=== PATIENT | male | born 1955 | race Caucasian/White ===

== ENCOUNTER → 2024-11-22 07:24 | Outpatient (CLI) | payer MEDICARE, BC, SELFPAY ==
[2024-11-22 07:47] LABS: Mean Corpuscular HGB Conc 33.4 % (30-36); Mean Corpuscular Hemoglobin 31.4 PG (26-34); Mean Corpuscular Volume 94.2 fL (80-100); Platelet Count 162 X10^3/uL (150-400); Red Blood Cell Count 5.74 X10^6/uL (4.5-5.9); Red Cell Distribution Width 14.2 % (11.6-14.8); White Blood Cell Count 6.3 X10^3/uL (4.5-11.0)
[2024-11-22 07:53] LABS: Hemoglobin A1C% w Est Avg Glu 5.2 % (4.0-6.0)
[2024-11-22 08:05] LABS: Alanine Aminotransferase 34 IU/L (<50); Albumin 4.5 g/dL (3.5-5.0); Alkaline Phosphatase 71 U/L (38-126); Aspartate Aminotransferase 31 IU/L (17-59); BUN Creatinine Ratio 12.1 (6-22); Bilirubin Total 1.3 mg/dL (0.2-1.3); Blood Urea Nitrogen 17 mg/dL (9-20); Carbon Dioxide 29 mmol/L (22-32); Chloride 103 mmol/L (98-107); Cholesterol 214 mg/dL (140-199); Estimated Glomerular Filt Rate 53 mL/min (>60); Globulin 2.2 g/dL (1.7-4.1); Glucose 97 mg/dL (70-99); HDL Cholesterol 28 mg/dL (40-60); HEMOLYSIS < 15 (0-50); LDL Cholesterol Calculated 134 mg/dL (<100); Potassium 4.2 mmol/L (3.4-5.1); Sodium 140 mmol/L (137-145); Total Protein 6.7 g/dL (6.3-8.2); Triglycerides 261 mg/dL (35-150)
[2024-11-22 08:12] LABS: Creatinine Urine Random 199.85 mg/dL
[2024-11-22 08:20] LABS: Prolactin 1.4 ng/mL (3.7-17.9)
[2024-11-22 08:22] LABS: Free T3, Triiodothyronine Free 4.01 pg/mL (2.77-5.27); Free T4, Direct Thyroxine 1.39 ng/dL (0.78-2.19)
[2024-11-22 08:24] LABS: Microalbumin Urine Random < 0.6 mg/dL (0-1.6)
[2024-11-22 08:35] LABS: Thyroid Stimulating Hormone 1.38 uIU/mL (0.47-4.68)
[2024-11-22 08:53] LABS: Hep C Virus Ab w/Reflex Quant NEGATIVE s/c (NEGATIVE)
== END ==
LOC: LAB 07:25
PROVIDERS: PCP Family Medicine; Referring Provider Family Medicine; Visit Provider Family Medicine
DX: D35.2 Benign neoplasm of pituitary gland (principal); Z13.1 Encounter for screening for diabetes mellitus; E03.9 Hypothyroidism, unspecified; I10 Essential (primary) hypertension; Z11.59 Encounter for screening for other viral diseases; E78.5 Hyperlipidemia, unspecified; E29.1 Testicular hypofunction
CPT/HCPCS: 36415; 80053; 80061; 82043; 82570; 83036; 84146; 84402; 84403; 84439; 84443; 84481; 85027; 86803

== ENCOUNTER → 2024-12-15 10:47 | Outpatient (CLI) | payer MEDICARE, BC, SELFPAY ==
[2024-12-15 12:18] LABS: Hematocrit 54.1 % (41-53); Hemoglobin 18.5 g/dL (13.5-17.5)
[2024-12-15 12:45] LABS: Ferritin 261 ng/mL (18-464)
[2024-12-24 14:09] LABS: Percent Free Testosterone 3.57 % (1.50-4.20); Testosterone Free 6.99 ng/dL (5.00-21.00); Testosterone Total 195.7 ng/dL (264.0-916.0)
== END ==
PROVIDERS: PCP Family Medicine; Referring Provider Internal Medicine Endocrinology, Diabetes & Metabolism; Visit Provider Internal Medicine Endocrinology, Diabetes & Metabolism
DX: E29.1 Testicular hypofunction (principal)
CPT/HCPCS: 36415; 82728; 84402; 84403; 85014; 85018

== ENCOUNTER → 2024-12-21 07:52 | Outpatient (CLI) | payer MEDICARE, BC, SELFPAY ==
--- NOTE | 2024-12-21 07:53 | DI.MRI.S_ITS ---
PROCEDURE: MR FEMUR RT WO/W CON INDICATIONS: tumor, mass TECHNIQUE: Noncontrast coronal T1 spin echo and STIR, sagittal T1 spin echo with fat saturation and STIR, axial T1 spin echo and T2 fast spin echo with fat saturation. After the administration of contrast, axial/sagittal/coronal T1 spin echo with fat saturation through the right femur. COMPARISON: None. FINDINGS: Image quality: Excellent. Bones: Status post right hip arthroplasty, creating artifacts and limits evaluation. Marrow signal of bilateral femur are otherwise unremarkable. Mild degenerative changes of the patellofemoral compartment. Small right knee effusion. Soft tissues: Severe fatty atrophy of the right abductor jenny at the level of the mid and distal thigh. Postprocedure changes in the posterior right distal thigh. Trace amount of fluid within the postsurgical bed in the posterior right distal thigh (13:32). No nodular enhancement in the right thigh to suggest recurrence. Small popliteal cyst. IMPRESSION: Postprocedure changes in the posterior right distal thigh with trace amount of fluid. No nodular enhancement in the right thigh to suggest recurrence. Dictated by: Nisreen Clark M.D. on 12/21/2024 at 12:58 Approved by: Nisreen Clark M.D. on 12/21/2024 at 13:08
--- NOTE | 2024-12-21 07:53 | DI.MRI.S_ITS ---
PROCEDURE: MR CHEST WO/W CON INDICATIONS: tumor, mass TECHNIQUE: Axial 2-D FLASH in- and [id number], axial breath-hold T2 FSE, axial STIR FSE. Optional contrast may be given, followed by axial 2-D FLASH with fat saturation acquired over the lesion of concern. COMPARISON: None. FINDINGS: Image quality: Diagnostic Lungs and pleura: Not well assessed on this study, no drainable effusions Mediastinum, heart, and esophagus: Large field of view survey images show no definite lymphadenopathy. Normal heart size. Unremarkable esophagus Chest wall and thyroid: Not fully seen. At the area of clinical concern in the right back, there is a fat containing lesion measuring 7.8 x 3.5 x 9.1 cm. No suspicious internal enhancement is noted. Upper abdomen: Not fully seen on this study. There are renal cysts. Bones: Where visualize, no acute abnormality. 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 No definite enhancing soft tissue nodule. However, if there is clinical concern for enlargement, consider 3 to 6-month repeat imaging and/or sampling to evaluate for atypical lipomatous tumor. Dictated by: Kole Kramer M.D. on 12/21/2024 at 12:56 Approved by: Kole Kramer M.D. on 12/21/2024 at 13:00
== END ==
PROVIDERS: PCP Family Medicine; Referring Provider Orthopaedic Surgery; Visit Provider Orthopaedic Surgery
DX: C49.21 Malignant neoplasm of connective and soft tissue of right lower limb, including hip (principal); M79.89 Other specified soft tissue disorders; M25.461 Effusion, right knee; M71.22 Synovial cyst of popliteal space [Baker], left knee
CPT/HCPCS: 71552; 73720; A9579

== ENCOUNTER → 2024-12-21 07:55 | Outpatient (CLI) | payer MEDICARE, BC, SELFPAY ==
--- NOTE | 2024-12-21 07:55 | DI.MRI.S_ITS ---
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 Thin-slice sagittal and coronal T1 spin echo, coronal T2 fast spin echo through the pituitary. After the administration contrast, optional dynamic coronal T1 spin echo, thin-slice coronal and sagittal T1 spin echo images through the pituitary fossa; axial and coronal and sagittal T1 spin echo with fat saturation through the brain. COMPARISON: None. FINDINGS: Image quality: This examination is limited by involuntary motion artifact. Pituitary Gland: The pituitary tissue is largely flattened along the floor of the sella turcica, which is considered to be an anatomic variant. On the postcontrast imaging, no masses or abnormally enhancing areas are seen. The pituitary stalk and infundibulum are deviated to the left, yet otherwise have an unremarkable appearance. A normal appearing pituitary bright spot is seen posteriorly on the precontrast sagittal T1- weighted images. The optic chiasm and the ventral forebrain have an unremarkable appearance. CSF Spaces: Ventricles are normal in size and shape. Basal cisterns are patent. No extra-axial fluid collections. Brain: No intracranial bleeds or mass effects. No abnormal intracranial enhancement. Justin-white matter interface is intact. Diffusion weighted images demonstrate no acute ischemic insults. Brainstem is normal. Normal intravascular flow voids are present. Skull and face: Calvarial marrow is normal in signal. Orbits appear normal. Sinuses: Sinuses and mastoids are clear. IMPRESSION: No significant pituitary abnormality is seen. Dictated by: Michael Ferrera M.D. on 12/21/2024 at 15:49 Approved by: Michael Ferrera M.D. on 12/21/2024 at 15:51
== END ==
LOC: MRI 07:55
PROVIDERS: PCP Family Medicine; Referring Provider Family Medicine; Visit Provider Family Medicine
DX: C49.21 Malignant neoplasm of connective and soft tissue of right lower limb, including hip (principal); D35.2 Benign neoplasm of pituitary gland; R22.2 Localized swelling, mass and lump, trunk; M79.89 Other specified soft tissue disorders; N28.1 Cyst of kidney, acquired; M25.461 Effusion, right knee; M71.21 Synovial cyst of popliteal space [Baker], right knee; Z96.641 Presence of right artificial hip joint
CPT/HCPCS: 70553; 71552; 73720; A9579

== ENCOUNTER → 2025-03-29 09:45 | Outpatient (CLI) | payer MEDICARE, BC, SELFPAY ==
[2025-03-29 10:49] LABS: Hematocrit 49.4 % (41-53); Hemoglobin 16.7 g/dL (13.5-17.5); Mean Corpuscular HGB Conc 33.8 % (30-36); Mean Corpuscular Hemoglobin 32.1 PG (26-34); Mean Corpuscular Volume 94.9 fL (80-100); Platelet Count 166 X10^3/uL (150-400)
[2025-03-29 11:05] LABS: HEMOLYSIS < 15 (0-50); Iron 135 ug/dL (49-181)
[2025-03-29 11:08] LABS: Alanine Aminotransferase 31 IU/L (<50); Albumin 4.2 g/dL (3.5-5.0); Albumin Globulin Ratio 1.8 (1.0-2.8); Alkaline Phosphatase 67 U/L (38-126); Blood Urea Nitrogen 14 mg/dL (9-20); Calcium 9.0 mg/dL (8.4-10.2); Carbon Dioxide 29 mmol/L (22-32); Chloride 104 mmol/L (98-107); Cholesterol 210 mg/dL (140-199); Estimated Glomerular Filt Rate > 60 mL/min (>60); Globulin 2.4 g/dL (1.7-4.1); Glucose 97 mg/dL (70-99); HDL Cholesterol 34 mg/dL (40-60); HEMOLYSIS < 15 (0-50); Potassium 4.8 mmol/L (3.4-5.1); Sodium 140 mmol/L (137-145); Total Protein 6.6 g/dL (6.3-8.2); Triglycerides 138 mg/dL (35-150)
[2025-03-29 11:18] LABS: Percent Iron Saturation 50 % (20-50); Total Iron Binding Capacity 269 ug/dL (261-462); Transferrin 221 mg/dL (206-381)
[2025-03-29 11:41] LABS: Ferritin 266 ng/mL (18-464)
[2025-04-15 09:36] LABS: Percent Free Testosterone 4.76 % (1.50-4.20)
== END ==
LOC: LAB 09:46
PROVIDERS: PCP Family Medicine; Referring Provider Family Medicine; Visit Provider Family Medicine
DX: D35.2 Benign neoplasm of pituitary gland (principal); E78.2 Mixed hyperlipidemia; Z12.5 Encounter for screening for malignant neoplasm of prostate; E29.1 Testicular hypofunction
CPT/HCPCS: 36415; 80053; 80061; 82728; 83540; 83550; 84146; 84402; 84403; 85027; G0103